=== PATIENT | female | born 1995 | race Two or more races ===

== ENCOUNTER 2025-01-23 08:27 | Emergency (ER) | payer MEDICAID, SELFPAY ==
[2025-01-23 08:34] VITALS: PULSE 96; RESP 18; O2SAT 98
[2025-01-23 08:44] VITALS: BP 154/106; PULSE 83; RESP 18; TEMP 37; O2SAT 100; BMI 34.7
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
[2025-01-23 12:50] VITALS: BP 138/70; PULSE 79; RESP 18; TEMP 36.7; O2SAT 98
== END 2025-01-23 12:51 | disposition home or self-care (01) ==
PROVIDERS: PCP Family Medicine
DX: R51.9 Headache, unspecified (principal); V49.40XA Driver injured in collision with unspecified motor vehicles in traffic accident, initial encounter
CPT/HCPCS: 70450; 99284